=== PATIENT | male | born 1955 | race Caucasian/White ===

== ENCOUNTER 2020-05-31 11:32 | Inpatient (IN) | payer MEDICARE, SELFPAY ==
[2020-05-31] VITALS (9 sets, daily range): BP systolic 114–133; BP diastolic 77–94; PULSE 88–99; RESP 18–24; TEMP 36.4–38.2; O2SAT 91–94; BMI 28.7
--- NOTE | 2020-05-31 11:50 | EKG12_ITS ---
Test Reason : SOB Blood Pressure : / mmHG Vent. Rate : 098 BPM Atrial Rate : 098 BPM P-R Int : 154 ms QRS Dur : 088 ms QT Int : 328 ms P-R-T Axes : 087 -38 150 degrees QTc Int : 418 ms Normal sinus rhythm Left axis deviation ST & T wave abnormality, consider lateral ischemia Abnormal ECG Confirmed by MELINA GASPAR, MARIANA ([id number]), editor magazine DIANA CRISOSTOMO ([id number]) on 06/13/2020 8:42:42 AM Referred By: WILLIAM Confirmed By:LIGIA SUMMERS MD
--- NOTE | 2020-05-31 11:52 | ED.DCSUM_ITS ---
- ER Visit Summary Date of Service: 05/31/20 Chief Complaint: [Shortness of breath] History of Present Illness: The patient is a 65 M [presents to the emergency department complaint of shortness of breath that started 10 days ago. Patient states that multiple family members have been diagnosed with COVID-19. Patient has a [id number]-smh that lives with him and another zjllujrn-[id number] that is a couple of doors down that also was diagnosed with Covid. Patient started with symptoms about 10 days ago and complains of fever, cough, body aches, headaches, and loss of taste and smell. Patient otherwise has no medical history. Patient states that this morning he woke up and his oxygen level was 74%. Patient states that with activity at home his O2 sat drops into the 80s. Patient denies any chest pain.] Physical Examination: [HEENT-PERRLA, EOMI. Cranial nerves II through XII grossly intact. TMs clear. Mucous membranes slightly dry. No adenopathy. Cardiovascular-regular rate and rhythm without murmur or ectopy Lungs-clear to auscultation, chest wall stable without crepitus or subcu emphysema Abdomen-normoactive bowel sounds, soft, nontender, no rebound or rigidity, no peritoneal signs. Extremities-intact ?4, normal range of motion, normal pulses, atraumatic] Test Results: [EKG obtained on arrival shows sinus rhythm with a ventricular rate of 98 bpm with some nonspecific ST changes noted. CBC with differential showed a white count 6.6, hemoglobin 16.7, hematocrit 52, placed 256. Chemistries unremarkable. Troponin less than 0.015. D-dimer was slightly elevated 0.52. Lactate was 2.3. Chest x-ray showed bilateral patchy infiltra stef. CTA of the chest obtained showed multiple small bilateral PEs and bilateral patchy infiltrates. Patient's COVID-19 PCR test pending although I suspect this will be positive.] Emergency Department Course and Treatment: [IV line established. Patient was given Decadron 6 mg IV. Patient placed on nasal cannula O2 as with ambulation his O2 sat did not go above 89%. I discussed case with hospitalist who will admit patient and I was asked to start patient on Lovenox subcu.] Treatment Plan: [Admit] Disposition: [Admit] Impression: [Bilateral pulmonary emboli Bilateral pneumonia-suspect COVID-19 Hypoxemia] This note was generated with [employer] dictation software. It may contain incorrect words, spelling, and punctuation that were not noted in review of the chart prior to signing ED Disposition - Plan for ED Patient: Referrals: Neetu Pham MD [Primary Care Provider] -
[2020-05-31 12:31] LABS: Absolute Lymphocyte Count 0.64 X10^3/uL (0.83-4.51); Absolute Neutrophil Count 5.4 X10^3/uL (2.0-7.7); Basophil# 0.02 X10^3/uL; Basophil% 0.3 % (0-1); Hematocrit 51.8 % (40-54); Hemoglobin 16.7 g/dL (13.0-16.5); Lymphocyte # 0.64 X10^3/ul (4.0); Lymphocyte % 9.7 % (19-41); Mean Corp Hgb Conc 32.2 g/dL (32-36); Mean Corpuscular Hgb 27.2 pg (27.0-32.0); Mean Corpuscular Volume 84.4 fL (80-94); Monocyte# 0.45 X10^3/uL; Monocyte% 6.8 % (0-10); NRBC Flagged by Analyzer 0 % (0-5); Neutrophil # 5.44 X10^3/uL (2.7-7.7); Neutrophil % 82.7 % (47-70); Platelet Count 256 K/mm3 (150-450); RBC Distribution Width CV 13.5 % (11.6-14.6); RBC Distribution Width SD 41.8 fl (35.1-43.9); Red Blood Count 6.14 M/mm3 (4.6-6.2); White Blood Count 6.6 K/mm3 (4.4-11.0)
[2020-05-31 12:47] LABS: Anion Gap 6 (5-15); BUN 16 mg/dL (7-18); BUN/Creat Ratio 13.8 RATIO (10-20); Calcium,Total 8.6 mg/dL (8.5-10.1); Chloride 102 mmol/L (98-107); Creatinine, Serum 1.16 mg/dL (0.70-1.30); EST Glomerular Filtration Rate 68 mL/min (>60); Est Glom Filt Rate - Afr Amer 82 mL/min (>60); Glucose 100 mg/dL (74-106); Potassium 4.1 mmol/L (3.5-5.1); Sodium Level 136 mmol/L (136-145)
--- NOTE | 2020-05-31 12:50 | RAD_ITS ---
STUDY: X-RAY CHEST REASON FOR EXAM: Male, 65 years old. Shortness of breath, cough, no appetite x 10 days, multiple family members with COVID TECHNIQUE: Single AP portable view of the chest. COMPARISON: Comparison is made with prior study dated 06/22/2014. FINDINGS: EKG electrodes are seen. There now is evidence of a patchy bilateral pulmonary infiltrates worse in the left lower lobe follow-up is recommended. There is no demonstrated pleural abnormality. Normal size heart. Normal mediastinum and crystal. Normal visualized pulmonary arteries. There is atherosclerotic tortuosity of the aortic arch and descending thoracic aorta. There are diffuse degenerative changes of the visualized thoracic spine. Status post left shoulder replacement. There is no demonstrated abnormality of the visualized soft tissue structures of the upper abdomen. RAD/Chest 1 View (Portable) IMPRESSION: Bilateral patchy pulmonary infiltrates worse in the left lower lobe. Follow-up is recommended. Electronically Signed: Stanislaw Smith, at 13:04 EST , Service support ,
[2020-05-31 12:53] LABS: D-Dimer Quantitative (DVT/PE) 0.52 FEU/ug/m (0.27-0.49)
--- NOTE | 2020-05-31 12:56 | CT_ITS ---
STUDY: CTA CHEST REASON FOR EXAM: Male, 65 years old. DYSPNEA, COVID EXPOSURE, SICK X 10 DAYS, SOB, COUGH, ASTHMA. 2 scans thru chest, patient moved during scan. RADIATION DOSAGE (If Supplied By Facility): CTDIvol = ( 11.26 ) mGy, DLP = ( 943.77 ) mGycm TECHNIQUE: The examination was performed with the intravenous administration of IV 100mL Isovue-300. Post-processing of the angiographic images was performed, with multiplanar reformation and 3D reconstruction. Individualized dose optimization techniques were used for this CT. COMPARISON: None. FINDINGS: Multiple intraluminal filling defects in the pulmonary arterial branches in both upper lobes. Normal thoracic aorta and visualized great vessels. There is no demonstrated aortic dissection. Normal heart and pericardium. Normal mediastinum. Normal hilar regions. Normal visualized trachea and bronchi. The lungs are well expanded. Diffuse bilateral pulmonary infiltrates in a preferential peripheral distribution involving both lungs. Normal pleura. Normal chest wall structures. Normal osseous structures. Fatty infiltration of the liver. Small hiatal hernia. CT/CTA Chest W/WO Contrast IMPRESSION: Multiple small pulmonary emboli in the upper lobe pulmonary arterial branches. Bilateral patchy infiltrates in the peripheral distribution. Electronically Signed: Stanislaw Smith, at 13:55 EST , Service support ,
[2020-05-31 13:08] LABS: Lactic Acid 2.3 mmol/L (0.4-1.9)
[2020-05-31] MEDS: 0.9% Normal Saline 1,000 ML 150 ML IV (13:09)
[2020-05-31] MEDS: dexAMETHasone 4 MG/ML Vial 6 MG IV (13:09)
--- NOTE | 2020-05-31 14:35 | PCM.HP.STD ---
Problem List (1) Pulmonary embolism Status: Acute Qualifiers: Chronicity: acute Acute cor pulmonale presence: unspecified (2) Hypoxia Status: Acute (3) Pneumonia due to COVID-19 virus Status: Acute (4) Lactic acidosis Status: Acute History of Present Illness Date of Admission: 05/31/20 Chief Complaint: SOB - 10 days The patient is a 65 year old M with no significant past medical history who comes in with complaints of progressive shortness of breath has gotten worse over the last 10 days. Patient stated that he got infected with COVID-19 and started having symptoms 2 days after Thanksgiving. There was a family gathering, and aunt, cshrbseu-ov-xth and son are all positive for infection. Patient admits to fevers, cough, body aches, loss of smell and taste as well as headaches. He denied any chest discomfort. Yesterday, he was noted at his oxygen saturation was dropping to the low 90s. Today his oxygen level was 74%. Vitals in the ED showed temp of 100.8F, heart rate 94, blood pressure 127/89, respiratory 18, SPO2 was 92% on 2 L of oxygen. WBC count is 6.6, hemoglobin 16.7, platelet count 256, D-dimer 0.52, BMP unremarkable except for lactic acid of 2.3, COVID-19 PCR is positive Chest x-ray showed bilateral patchy pulmonary infiltrates, worse in the left lower lobe. CTA of the chest shows multiple small pulmonary emboli in the upper lobe, bilateral patchy infiltrates in the peripheral distribution. Blood cultures are pending Past Medical History Allergies No Known Allergies Allergy (Verified 05/31/20 11:33) Home Medications: Ambulatory Orders Medication Instructions Recorded Acetaminophen [Tylenol Extra 1,000 mg PO DAILY PRN PRN 05/31/20 Strength] Ascorbic Acid 500 mg PO DAILY 05/31/20 Ascorbic Acid/Elderberry Fruit 1 ea PO DAILY 05/31/20 [Elderberry-Vit C 50-100 mg Chw] Cholecalciferol (Vitamin D3) 5,000 unit PO DAILY 05/31/20 [Vitamin D3] Ibuprofen [Motrin] 600 mg PO BID PRN PRN 05/31/20 Surgical History: - - Status post bilateral knee surgery, shoulder surgery Psychiatric History: No pertinent psych hx Lives: Spouse/ Significant Other, With Family Smoking Status: Former smoker Tobacco Use: Non-smoker Alcohol: Occasional Drugs: None - *Family History Maternal History Items: Heart Disease Paternal History Items: Hypertension Review of Systems Constitutional: Reports: Malaise, Weakness, Fatigue. Denies: Anorexia, Chills, Fever, Weight Change Eyes: Denies: Blurred vision, Cataracts, Conjunctivae Inflammation HEENT: Denies: Difficulty Hearing, Difficulty Swallowing, Head Aches, Hearing Changes, Sinus Congestion, Sinus Drainage Cardiovascular: Denies: Chest Pain, Light Headedness, Orthopnea, Palpitations, Syncope Respiratory: Reports: Cough, Shortness of Breath, Shortness of breath at rest, Shortness of breath upon exertion. Denies: Hemoptysis, Sputum production Gastrointestinal: Denies: Abdominal Pain, Hematemesis, Hematochezia, Nausea, Vomiting Genitourinary: Denies: Dysuria, Frequency Musculoskeletal: Denies: Joint Pain, Joint stiffness, Joint swelling, Joint Tenderness Skin: Denies: Rash, Wounds Neurological: Denies: Difficulty swallowing, Focal weakness, Numbness, Tingling Psychiatric: Denies: Anxiety, Depression, Homicidal Ideations, Suicidal Ideations Hematologic/ Lymphatic: Denies: Easy Bruising, Easy Bleeding VTE Information - Inpt Only VTE Present on Admission: Yes VTE Pharm Prophylaxis ordered?: Yes Patient Problems: Active and Suspected Problems Pulmonary embolism (Acute) Hypoxia (Acute) Pneumonia due to COVID-19 virus (Acute) Lactic acidosis (Acute) - Physical Exam Vitals/I&O's: Vital Signs Temp Pulse Resp BP Pulse Ox 99.9 F H 97 22 H 125/94 H 91 05/31/20 11:33 05/31/20 14:23 05/31/20 14:23 05/31/20 14:23 05/31/20 14:23 Oxygen Delivery Method Room Air Weight: 104.326 kg Body Mass Index (BMI) 28.7 General: Alert, Oriented x3, Cooperative, No apparent distress, - - on 2L oxygen, no conversational dyspnea HEENT: Atraumatic, PERRLA, EOMI, Normocephalic Oral: Moist Mucosa Neck: Supple Lungs: Diminished Cardiovascular: Regular rate, Regular Rhythm, Normal S1, Normal S2, No murmurs Abdomen: Bowel Sounds Present, Soft, Non Tender, Non-Distended, No Hepato-splenomegaly Extremities: No edema Skin: No rashes Musculoskeletal: No Tenderness to Palpation of Joints or Extremities Lymphatic: No Cervical, Supraclavicular, or Inguinal Adenopathy Neurological: Cranial nerves II-XII grossly intact, Neuro grossly intact Psych/Mental Status: Normal Affect, Appropriate Laboratory Results 05/31/20 11:55: COVID-19 (JAMEEL) Pending 05/31/20 12:18: WBC 6.6, RBC 6.14, Hgb 16.7 H, Hct 51.8, MCV 84.4, MCH 27.2, MCHC 32.2, RDW Std Deviation 41.8, RDW Coeff of Rj 13.5, Plt Count 256, MPV 10.0, Immature Gran % (Auto) 0.500, Neut % (Auto) 82.7 H, Lymph % (Auto) 9.7 L, Stephenson % (Auto) 6.8, Eos % (Auto) 0.0, Baso % (Auto) 0.3, Absolute Neuts (auto) 5.4, Absolute Lymphs (auto) 0.64 L, Nucleated RBC % 0 05/31/20 12:18: D-Dimer Quant (PE/DVT) 0.52 H* 05/31/20 12:18: Sodium 136, Potassium 4.1, Chloride 102, Carbon Dioxide 28.0, Anion Gap 6, BUN 16, Creatinine 1.16, Estim Creat Clear Calc 77.90, Est GFR (MDRD) Af Amer 82, Est GFR (MDRD) Non-Af 68, BUN/Creatinine Ratio 13.8, Glucose 100, Calcium 8.6, Troponin I < 0.015 05/31/20 12:18: Lactic Acid 2.3 H* Current Medications Sodium Chloride () 1,000 mls @ 150 mls/hr IV .[id number] ONE Stop: 05/31/20 18:28 Last Admin: 05/31/20 13:09 Dose: 150 mls/hr Documented by: Assessment/Plan All Active Problems Pulmonary embolism (Acute) Hypoxia (Acute) Pneumonia due to COVID-19 virus (Acute) Lactic acidosis (Acute) 1. Acute hypoxic respiratory insufficiency secondary to acute COVID-19 pneumonia Continue with breathing treatments,po steroids, encourage use of incentive spirometer. Wean off oxygen for SPO2 more than 94% 2. Acute COVID-19 pneumonia with hypoxia Started on IV dexamethasone, continue on oral dexamethasone and remdesivir ID consult 3. Acute bilateral PE secondary to #2 CTA of the chest shows multiple small pulmonary emboli in the upper lobe 4. Elevated lactic acid secondary to #1 We will repeat lactic acid in a.m. as patient appears stable and no signs of sepsis Laboratory technicians are unable to draw lactic acid levels this evening We will hydrate patient and repeat in a.m. 5. DVT prophylaxis?on therapeutic Lovenox 6. CODE STATUS: Full code I discussed and explained in details the various types of CODE STATUS-full code, DNR CCA, DNR CC. Patient wants to be full code. Time spent discussing CODE STATUS 16 minutes Inpatient E&M: 93064 Init Hosp L3 Procedures: 13416 Advncd Care Plan 30 Min
--- NOTE | 2020-05-31 14:42 | NURSING ---
MS2 COVID PAINTSIL COVID 19, PNEUMONIA, HYPOXIA, PE
[2020-05-31] MEDS: Enoxaparin 100 MG/ML Syringe SC ×2 (15:26→21:36)
[2020-05-31 16:25] LABS: Reflex Lactate? Y
[2020-05-31 17:11] LABS: AST(SGOT) 61 U/L (15-37); Alanine Aminotransfer ALT/SGPT 64 U/L (16-61); Albumin, Serum 3.7 g/dL (3.2-5.0); Alkaline Phosphatase 91 U/L (45-117); Bilirubin, Direct 0.17 mg/dL (0.00-0.30); Globulin 4.1 g/dL (2.2-4.2); Protein, Total 7.8 g/dL (6.4-8.2)
--- NOTE | 2020-05-31 17:24 | PCS.PANDOC ---
PANDEMIC DOCUMENTATION INITIATED: Date: 05/31/2020 Time: 3426
[2020-06-01] VITALS (12 sets, daily range): BP systolic 116–125; BP diastolic 81–90; PULSE 76–90; RESP 18–24; TEMP 34.8–36.5; O2SAT 87–94
[2020-06-01 07:50] LABS: Absolute Lymphocyte Count 1.07 X10^3/uL (0.83-4.51); Absolute Neutrophil Count 3.6 X10^3/uL (2.0-7.7); Basophil# 0.01 X10^3/uL; Basophil% 0.2 % (0-1); Hematocrit 51.1 % (40-54); Hemoglobin 16.4 g/dL (13.0-16.5); Lymphocyte # 1.07 X10^3/ul (4.0); Lymphocyte % 21.4 % (19-41); Mean Corp Hgb Conc 32.1 g/dL (32-36); Mean Corpuscular Hgb 26.6 pg (27.0-32.0); Mean Platelet Vol. 10.2 fl (6.2-12.0); Monocyte# 0.33 X10^3/uL; Monocyte% 6.6 % (0-10); NRBC Flagged by Analyzer 0 % (0-5); Neutrophil # 3.58 X10^3/uL (2.7-7.7); Neutrophil % 71.6 % (47-70); Platelet Count 273 K/mm3 (150-450); RBC Distribution Width CV 13.4 % (11.6-14.6); RBC Distribution Width SD 41.2 fl (35.1-43.9); Red Blood Count 6.16 M/mm3 (4.6-6.2)
[2020-06-01 08:03] LABS: Lactic Acid 1.7 mmol/L (0.4-1.9)
[2020-06-01 08:27] LABS: ALB/GLOB Ratio 0.9 RATIO (0.9-2.4); AST(SGOT) 46 U/L (15-37); Alanine Aminotransfer ALT/SGPT 57 U/L (16-61); Albumin, Serum 3.4 g/dL (3.2-5.0); Alkaline Phosphatase 83 U/L (45-117); Anion Gap 8 (5-15); BUN 18 mg/dL (7-18); BUN/Creat Ratio 20.2 RATIO (10-20); Calcium,Total 8.7 mg/dL (8.5-10.1); Chloride 106 mmol/L (98-107); Creatinine, Serum 0.89 mg/dL (0.70-1.30); EST Glomerular Filtration Rate 92 mL/min (>60); Est Glom Filt Rate - Afr Amer 111 mL/min (>60); Estimated Creatinine Clearance 101.54 ml/min; Globulin 3.7 g/dL (2.2-4.2); Glucose 134 mg/dL (74-106); Potassium 4.5 mmol/L (3.5-5.1); Protein, Total 7.1 g/dL (6.4-8.2); Sodium Level 138 mmol/L (136-145)
[2020-06-01] MEDS: Enoxaparin 100 MG/ML Syringe SC (08:45)
[2020-06-01] MEDS: dexAMETHasone 4 MG Tablet 6 MG PO (08:45)
--- NOTE | 2020-06-01 08:49 | NURSING ---
pt states i am going to try and move as much as i can to keep my strength up. oxygen left at 4l NC
[2020-06-01] MEDS: 0.9% Saline Lock 10 ML Syringe IV ×2 (10:31→21:05)
--- NOTE | 2020-06-01 14:27 | PN_ITS ---
Patient Problems: Active and Suspected Problems Pulmonary embolism (Acute) Hypoxia (Acute) Pneumonia due to COVID-19 virus (Acute) Lactic acidosis (Acute) Reason for Visit: PE and COVID 19 Subjective: Feels better after his oxygen increased up to 4 liters from 2. Has been ill for about 10 days prior to arrival. Vitals/I&O's: Vital Signs Temp Pulse Resp BP Pulse Ox 34.8 C L 82 24 H 125/90 H 90 06/01/20 08:01 06/01/20 11:52 06/01/20 08:01 06/01/20 08:01 06/01/20 14:25 Oxygen Flow Rate (L/min) [ 4 AMBULATION with Oxygen] Oxygen Flow Rate (L/min) 4 Oxygen Delivery Method Nasal Cannula Weight: 104.326 kg Body Mass Index (BMI) 28.7 Intake and Output for Last 24 Hours 05/30/20 05/31/20 06/01/20 23:59 23:59 23:59 Intake Total 1250 / 1250 Balance 1250 / 1250 General: Alert, No apparent distress HEENT: Atraumatic, Normocephalic Oral: Moist Mucosa, No Gingival or Mucosal Lesions/ Ulcerations Neck: No Nodes, Thyroid Normal Size and Texture Lungs: Normal air movement, - - bibasilar crackles. Cardiovascular: Regular rate Abdomen: Bowel Sounds Present, Soft, Non Tender, Non-Distended, No Hepato- splenomegaly Extremities: No edema, No Calf Tenderness Psych/Mental Status: Normal Affect, Appropriate Laboratory Results 05/31/20 11:55: COVID-19 (JAMEEL) Detected 05/31/20 12:18: Total Bilirubin 0.50, Direct Bilirubin 0.17, AST 61 H, ALT 64 H, Alkaline Phosphatase 91, Total Protein 7.8, Albumin 3.7, Globulin 4.1 06/01/20 07:22: WBC 5.0, RBC 6.16, Hgb 16.4, Hct 51.1, MCV 83.0, MCH 26.6 L, MCHC 32.1, RDW Std Deviation 41.2, RDW Coeff of Rj 13.4, Plt Count 273, MPV 10.2, Immature Gran % (Auto) 0.200, Neut % (Auto) 71.6 H, Lymph % (Auto) 21.4, Da[place]hin % (Auto) 6.6, Eos % (Auto) 0.0, Baso % (Auto) 0.2, Absolute Neuts (auto) 3.6, Absolute Lymphs (auto) 1.07, Nucleated RBC % 0 06/01/20 07:22: Sodium 138, Potassium 4.5, Chloride 106, Carbon Dioxide 24.0, Anion Gap 8, BUN 18, Creatinine 0.89, Estim Creat Clear Calc 101.54, Est GFR (MDRD) Af Amer 111, Est GFR (MDRD) Non-Af 92, BUN/Creatinine Ratio 20.2 H, Glucose 134 H, Calcium 8.7, Total Bilirubin 0.40, AST 46 H, ALT 57, Alkaline Phosphatase 83, Total Protein 7.1, Albumin 3.4, Globulin 3.7, Albumin/Globulin Ratio 0.9 06/01/20 07:22: Lactic Acid 1.7 Current Medications Acetaminophen (Acetaminophen 325 Mg Tablet) 650 mg PO Q6H PRN PRN PRN Reason: Pain Score 1-10/Temp > 100.7 F Al Hydroxide/Mg Hydroxide (Mag Hydrox/Al Hydrox/Simeth 30 Ml Udc) 30 ml PO Q6H PRN PRN PRN Reason: Gastric Burning Albuterol Sulfate (Albuterol 2.5 Mg/3 Ml Vial.Neb.) 2.5 mg INHALATION Q2H PRN PRN PRN Reason: Shortness of Breath/Wheezing Dexamethasone (Dexamethasone 4 Mg Tablet) 6 mg PO DAILY [facility] Stop: 06/09/20 10:01 Last Admin: 06/01/20 08:45 Dose: 6 mg Documented by: Enoxaparin Sodium (Enoxaparin 100 Mg/Ml Syringe) 100 mg SC Q12 [facility] Last Admin: 06/01/20 08:45 Dose: 100 mg Documented by: Remdesivir 100 mg/ Sodium (Chloride) 250 mls @ 125 mls/hr IV DAILY [facility] Stop: 06/04/20 11:59 Last Admin: 06/01/20 10:29 Dose: 125 mls/hr Documented by: Sodium Chloride () 250 mls @ 15 mls/hr IV .[id number] PRN PRN Reason: Saline Flush Sodium Chloride () 250 mls @ 15 mls/hr IV .[id number] PRN PRN Reason: Additional IVPB Infusion Nitroglycerin (Nitroglycerin (Inpatient Use) 0.4 Mg Tab.Subl) 0.4 mg SUBLINGUAL Q5M PRN PRN Reason: CARDIAC/CHEST PAIN Ondansetron HCl (Ondansetron 4 Mg/2 Ml Vial) 4 mg IV Q8H PRN PRN PRN Reason: NAUSEA/VOMITING Sodium Chloride (0.9% Saline Lock 10 Ml Syringe) 10 - 40 ml IV UD PRN PRN Reason: SALINE FLUSH Last Admin: 06/01/20 10:31 Dose: 10 ml Documented by: STROKE Vital Signs/Narrative: Vital Signs Pulse Pulse Ox 06/01/20 14:25 90 06/01/20 11:52 82 Medical Necessity - Tobacco Use Smoking Status: Never smoker Tobacco Use: Non-smoker Assessment/Plan All Active Problems Pulmonary embolism (Acute) Hypoxia (Acute) Pneumonia due to COVID-19 virus (Acute) Lactic acidosis (Acute) 1. Acute hypoxic respiratory failure * 2/2 COVID 19 pnuemonia and PE * currently stable * treat the underlying illness * check ambulatory pulse ox prior to discharge 2. Acute COVID 19 pneumonia * on dex and rem 3. PE * may be due to hypercoagulable state of COVID 19 or due to venous stasis from relative immobility from being ill. * D-dimer only 0.52, which is normal for his age. * change to apixaban. Will need treated for 6 months 4. lactic acidosis * resolved * 2/2 hypoxia 5. VTE prophylaxis: anticoagulated. Inpatient E&M: 31382 Subs Hosp L2
--- NOTE | 2020-06-01 16:21 | CON.PCM_ITS ---
Problem List (1) Pneumonia due to COVID-19 virus Status: Acute Reason for Consult: covid Consulted by: Dr. Adkins History of Present Illness: The patient is a 65 year old M presented with sx starting 05/20 after Thanksgiving dinner with his two sons, their families, and his elderly aunt. Multiple symptomatic (+) covid cases from that group now. He reports aches, fever, chills, cough, SOB, n/v/d, change in taste/smell, fatigue. Came to ED, CT showed PE, admitted on dex, remdesivir, high dose lovenox. Feeling better today. Full ROS performed and neg except as noted above. - Medical History Surgical History: reviewed Allergies/Adverse Reactions: Allergies No Known Allergies Allergy (Verified 05/31/20 11:33) Home Medications: Ambulatory Orders Medication Instructions Recorded Acetaminophen [Tylenol Extra 1,000 mg PO DAILY PRN PRN 05/31/20 Strength] Ascorbic Acid 500 mg PO DAILY 05/31/20 Ascorbic Acid/Elderberry Fruit 1 ea PO DAILY 05/31/20 [Elderberry-Vit C 50-100 mg Chw] Cholecalciferol (Vitamin D3) 5,000 unit PO DAILY 05/31/20 [Vitamin D3] Ibuprofen [Motrin] 600 mg PO BID PRN PRN 05/31/20 - Social History SMOKING STATUS:: Never smoker Vital Signs Temp Pulse Resp BP Pulse Ox 97.7 F L 85 20 H 122/89 H 94 06/01/20 14:59 06/01/20 14:59 06/01/20 14:59 06/01/20 14:59 06/01/20 14:59 Oxygen Flow Rate (L/min) [ 4 AMBULATION with Oxygen] Oxygen Flow Rate (L/min) 4 Oxygen Delivery Method Nasal Cannula Weight: 104.326 kg Body Mass Index (BMI) 28.7 Laboratory Tests Past 24 Hrs 05/31/20 06/01/20 06/01/20 12:18 07:22 07:22 WBC 5.0 RBC 6.16 Hgb 16.4 Hct 51.1 MCV 83.0 MCH 26.6 L MCHC 32.1 RDW Std Deviation 41.2 RDW Coeff of Rj 13.4 Plt Count 273 MPV 10.2 Immature Gran % (Auto) 0.200 Neut % (Auto) 71.6 H Lymph % (Auto) 21.4 Ingham % (Auto) 6.6 Eos % (Auto) 0.0 Baso % (Auto) 0.2 Absolute Neuts (auto) 3.6 Absolute Lymphs (auto) 1.07 Nucleated RBC % 0 Sodium 138 Potassium 4.5 Chloride 106 Carbon Dioxide 24.0 Anion Gap 8 BUN 18 Creatinine 0.89 Estim Creat Clear Calc 101.54 Est GFR (MDRD) Af Amer 111 Est GFR (MDRD) Non-Af 92 BUN/Creatinine Ratio 20.2 H Glucose 134 H Lactic Acid Calcium 8.7 Total Bilirubin 0.50 0.40 Direct Bilirubin 0.17 AST 61 H 46 H ALT 64 H 57 Alkaline Phosphatase 91 83 Total Protein 7.8 7.1 Albumin 3.7 3.4 Globulin 4.1 3.7 Albumin/Globulin Ratio 0.9 06/01/20 07:22 WBC RBC Hgb Hct MCV MCH MCHC RDW Std Deviation RDW Coeff of Rj Plt Count MPV Immature Gran % (Auto) Neut % (Auto) Lymph % (Auto) Ingham % (Auto) Eos % (Auto) Baso % (Auto) Absolute Neuts (auto) Absolute Lymphs (auto) Nucleated RBC % Sodium Potassium Chloride Carbon Dioxide Anion Gap BUN Creatinine Estim Creat Clear Calc Est GFR (MDRD) Af Amer Est GFR (MDRD) Non-Af BUN/Creatinine Ratio Glucose Lactic Acid 1.7 Calcium Total Bilirubin Direct Bilirubin AST ALT Alkaline Phosphatase Total Protein Albumin Globulin Albumin/Globulin Ratio - Other Studies Radiology: [] reviewed Other Studies: [] Route of nutrition/ use of supplements: [] Nutritional Intake: [] IV Site: [] [place] Catheter: [] - Physical Exam General: Alert, Oriented x3, Cooperative, No apparent distress HEENT: Atraumatic, PERRLA, EOMI Neck: Supple, No Nodes Lungs: Diminished Cardiovascular: Regular rate, Regular Rhythm Abdomen: Soft, Non Tender, Non-Distended Extremities: No edema Skin: No rashes IV Site: Peripheral, without redness Musculoskeletal: No Tenderness to Palpation of Joints or Extremities Neurological: Cranial nerves II-XII grossly intact - Assessment/Plan Antibiotics: [] Assessment/Plan: [] Active and Suspected Problems Pulmonary embolism (Acute) Hypoxia (Acute) Pneumonia due to COVID-19 virus (Acute) Lactic acidosis (Acute) Covid with hypoxia and PE - sx started 05/20. D-dimer mild elevation. On dex, lovenox 100mg bid, and remdesivir. Will order monitoring labs and give stop date for dex. Will follow, thank you
--- NOTE | 2020-06-01 17:04 | NURSING ---
RN CM Assessment Patient on COVID isolation, called bedside and s/w patient. Introduced role of RN CM to patient.? Patient is alert, oriented and able?to participate in RN CM Assessment. ?Care providers, pharmacy, and demographics verified. Admit Dx: COVID, Acute PE Re-Admit: No Barriers/Issues: None. States that his , son, Dtr in law all had COVID whom live with patient- stay in mother in law suite with his 3yo grand dtr. Dtr in law is a RN. Patient would like to go home tomorrow. PCP: Elsie Pham Specialists: ENT, Ophth Preferred Pharmacy: [facility] Insurance: [employer] Rx Benefit:?Yes ?LNOK: Bobby Guadalupe LW/HPOA: States has both, not on file at [facility]. HPOA- son Vipul Guadalupe Living Arrangements:? Lives with in a H, 1 step to enter. Son, dtr in law and 3yo granddtr live in mother in law suite. ADL?s: Independent with ambulation and ADLs Transportation: Both patient and drive. Upon DC- or son. DME: [employer] HHC: Past SNF: None Goal: Home and does not think will have any other needs other than possible oxygen. Denies any concerns or issues with DC planing at this time. Aware RNCM will continue to follow. DC PLAN: Home with possible oxygen and f/u if dc'd on Eliquis for coupon card. CHRIS Alexandre
[2020-06-01] MEDS: APIXABAN 5 MG TABLET 10 MG PO (21:06)
[2020-06-02] VITALS (8 sets, daily range): BP systolic 111–122; BP diastolic 78–84; PULSE 71–87; RESP 18–20; TEMP 36.4–36.7; O2SAT 87–94
[2020-06-02 06:49] LABS: Hemoglobin 14.6 g/dL (13.0-16.5); Mean Corp Hgb Conc 31.7 g/dL (32-36); Mean Corpuscular Hgb 27.7 pg (27.0-32.0); Mean Corpuscular Volume 87.1 fL (80-94); Mean Platelet Vol. 10.2 fl (6.2-12.0); Platelet Count 261 K/mm3 (150-450); RBC Distribution Width SD 44.7 fl (35.1-43.9); Red Blood Count 5.28 M/mm3 (4.6-6.2); White Blood Count 8.7 K/mm3 (4.4-11.0)
[2020-06-02 07:26] LABS: ALB/GLOB Ratio 0.5 RATIO (0.9-2.4); AST(SGOT) 48 U/L (15-37); Alanine Aminotransfer ALT/SGPT 55 U/L (16-61); Albumin, Serum 2.5 g/dL (3.2-5.0); Alkaline Phosphatase 73 U/L (45-117); Anion Gap 5 (5-15); BUN 21 mg/dL (7-18); BUN/Creat Ratio 28.5 RATIO (10-20); Calcium,Total 8.2 mg/dL (8.5-10.1); Chloride 110 mmol/L (98-107); Creatinine, Serum 0.74 mg/dL (0.70-1.30); EST Glomerular Filtration Rate 114 mL/min (>60); Est Glom Filt Rate - Afr Amer 138 mL/min (>60); Estimated Creatinine Clearance 122.12 ml/min; Globulin 4.6 g/dL (2.2-4.2); Glucose 115 mg/dL (74-106); Potassium 4.1 mmol/L (3.5-5.1); Protein, Total 7.1 g/dL (6.4-8.2); Sodium Level 134 mmol/L (136-145)
--- NOTE | 2020-06-02 08:56 | NURSING ---
SPO2 RANGES 90-92% ON 4L NASAL CANNULA, SPO2 DROPS TO 89% WHEN IN CONVERSATION WITH NURSE. PT REQUESTING TO HAVE NASAL CANNULA LOWERED- DISCUSSED/REINFORCED SUPPLY/DEMAND OXYGEN/DISEASE PROCESS. PT AGREES TO KEEP OXYGEN NASAL CANNULA AT PRESENT LEVEL.
[2020-06-02] MEDS: APIXABAN 5 MG TABLET 10 MG PO (09:00)
[2020-06-02] MEDS: dexAMETHasone 4 MG Tablet 6 MG PO (09:00)
[2020-06-02] MEDS: 0.9% Saline Lock 10 ML Syringe IV (10:51)
--- NOTE | 2020-06-02 10:56 | CASEMGMT ---
RN CM Note: Possible dc today if oxygen is stable. Per nursing note, oxygen dropping during conversation. Recommend home oxygen testing be repeated including activity for ambulatory levels and recovery. Heriberto ONEILN RN ACM
--- NOTE | 2020-06-02 11:05 | PCM.PN.ID ---
Patient Problems: Active and Suspected Problems Pulmonary embolism (Acute) Hypoxia (Acute) Pneumonia due to COVID-19 virus (Acute) Lactic acidosis (Acute) Subjective: Feeling much better, wants to go home, no fever - Physical Exam Vitals/I&O's: Vital Signs Temp Pulse Resp BP Pulse Ox 98.1 F 87 20 H 116/79 91 06/02/20 10:48 06/02/20 10:48 06/02/20 10:48 06/02/20 10:48 06/02/20 11:01 Oxygen Flow Rate (L/min) [ 4 AMBULATION with Oxygen] Oxygen Flow Rate (L/min) 4 Oxygen Delivery Method Nasal Cannula Weight: 104.326 kg Body Mass Index (BMI) 28.7 Intake and Output for Last 24 Hours 05/31/20 06/01/20 06/02/20 23:59 23:59 23:59 Intake Total 1250 / 1250 250 / 250 0 / 0 Balance 1250 / 1250 250 / 250 0 / 0 General: Alert, Cooperative, No apparent distress Lungs: Clear to auscultation, Diminished Cardiovascular: Regular rate, Regular Rhythm Abdomen: Soft, Non Tender, Non-Distended Skin: No rashes Laboratory Results 06/02/20 06:32: WBC 8.7, RBC 5.28, Hgb 14.6, Hct 46.0, MCV 87.1, MCH 27.7, MCHC 31.7 L, RDW Std Deviation 44.7 H, RDW Coeff of Rj 14.0, Plt Count 261, MPV 10.2 06/02/20 06:32: Sodium 134 L, Potassium 4.1, Chloride 110 H, Carbon Dioxide 19.0 L, Anion Gap 5, BUN 21 H, Creatinine 0.74, Estim Creat Clear Calc 122.12, Est GFR (MDRD) Af Amer 138, Est GFR (MDRD) Non-Af 114, BUN/Creatinine Ratio 28.5 H, Glucose 115 H, Calcium 8.2 L, Total Bilirubin 0.30, AST 48 H, ALT 55, Alkaline Phosphatase 73, Total Protein 7.1, Albumin 2.5 L, Globulin 4.6 H, Albumin/Globulin Ratio 0.5 L Current Medications Acetaminophen (Acetaminophen 325 Mg Tablet) 650 mg PO Q6H PRN PRN PRN Reason: Pain Score 1-10/Temp > 100.7 F Al Hydroxide/Mg Hydroxide (Mag Hydrox/Al Hydrox/Simeth 30 Ml Udc) 30 ml PO Q6H PRN PRN PRN Reason: Gastric Burning Albuterol Sulfate (Albuterol 2.5 Mg/3 Ml Vial.Neb.) 2.5 mg INHALATION Q2H PRN PRN PRN Reason: Shortness of Breath/Wheezing Apixaban (Apixaban 5 Mg Tablet) 10 mg PO BID [facility] Last Admin: 06/02/20 09:00 Dose: 10 mg Documented by: Dexamethasone (Dexamethasone 4 Mg Tablet) 6 mg PO DAILY [facility] Stop: 06/09/20 10:01 Last Admin: 06/02/20 09:00 Dose: 6 mg Documented by: Remdesivir 100 mg/ Sodium (Chloride) 250 mls @ 125 mls/hr IV DAILY [facility] Stop: 06/04/20 11:59 Last Admin: 06/02/20 10:50 Dose: 125 mls/hr Documented by: Sodium Chloride () 250 mls @ 15 mls/hr IV .[id number] PRN PRN Reason: Saline Flush Last Infusion: 06/02/20 10:51 Dose: 0 mls/hr Documented by: Sodium Chloride () 250 mls @ 15 mls/hr IV .[id number] PRN PRN Reason: Additional IVPB Infusion Nitroglycerin (Nitroglycerin (Inpatient Use) 0.4 Mg Tab.Subl) 0.4 mg SUBLINGUAL Q5M PRN PRN Reason: CARDIAC/CHEST PAIN Ondansetron HCl (Ondansetron 4 Mg/2 Ml Vial) 4 mg IV Q8H PRN PRN PRN Reason: NAUSEA/VOMITING Sodium Chloride (0.9% Saline Lock 10 Ml Syringe) 10 - 40 ml IV UD PRN PRN Reason: SALINE FLUSH Last Admin: 06/02/20 10:51 Dose: 10 ml Documented by: Medical Necessity - Tobacco Use Smoking Status: Never smoker Tobacco Use: Non-smoker Route of nutrition/ use of supplements: [] Nutritional Intake: [] IV Site: [] [place] Catheter: [] - Assessment/Plan Antibiotics: [] Assessment/Plan: [] Active and Suspected Problems Pulmonary embolism (Acute) Hypoxia (Acute) Pneumonia due to COVID-19 virus (Acute) Lactic acidosis (Acute) Covid with hypoxia and PE - sx started 05/20. D-dimer mild elevation. On dex, lovenox 100mg bid, and remdesivir. Much improved, ok for d/c home today or tomorrow on O2 as needed to complete 10 days total of dex and course of anticoag for PE. Will follow
--- NOTE | 2020-06-02 11:44 | CASEMGMT ---
RN Note: Discussed oxygen choices with pt for his insurance ([employer], [employer]). Pt prefers [employer]. Script and clinical faxed to them and called to notify of referral. Heriberto CULP RN ACM
--- NOTE | 2020-06-02 12:55 | DCINST_ITS ---
- Discharge Diagnoses Current Active Problems: Current Active and Chronic Problems Pulmonary embolism (Acute) Hypoxia (Acute) Pneumonia due to COVID-19 virus (Acute) Lactic acidosis (Acute) You will use the following diet at home:: No restrictions Your food should be the consistency of: Regular Your liquids should be the consistency of: Regular/Thin Discharge Activity: Return to Normal Activity Call your doctor if you observe: Fever of 101 or Higher, Shortness of breath Allergies/Adverse Reactions: Allergies No Known Allergies Allergy (Verified 05/31/20 11:33) Medications to take at Discharge Acetaminophen [Tylenol Extra Strength] 1,000 mg PO DAILY PRN PRN 05/31/20 Ascorbic Acid 500 mg PO DAILY 05/31/20 Ascorbic Acid/Elderberry Fruit [Elderberry-Vit C 50-100 mg Chw] 1 ea PO DAILY 05/31/20 Cholecalciferol (Vitamin D3) [Vitamin D3] 5,000 unit PO DAILY 05/31/20 Apixaban [Eliquis] 5 mg PO BID #60 tab 06/02/20 Dexamethasone [Decadron] 6 mg PO DAILY #7 tab 06/02/20 The following prescriptions were given: Dexamethasone [Decadron] 6 mg PO DAILY #7 tab Transmission Status: Pending to [facility]/pharmacy #[id number] Apixaban [Eliquis] 5 mg PO BID #60 tab Transmission Status: Pending to [facility]/pharmacy #[id number] Primary Care Physician: Neetu Pham MD [Primary Care Provider] - Within 2 Weeks Test Results: Test results from this visit will be discussed in further detail at your follow- up appointment, if applicable. Proposed Discharge Date: 06/02/20
--- NOTE | 2020-06-02 12:56 | PCM.DC.SUM ---
Discharge Date and Diagnosis - Problem List Patient Problems: Active and Suspected Problems Pulmonary embolism (Acute) Hypoxia (Acute) Pneumonia due to COVID-19 virus (Acute) Lactic acidosis (Acute) Date of Admission: 05/31/20 Date of Discharge: 06/02/20 - Primary Discharge Diagnosis Acute Problems: Active Problems Pulmonary embolism (Acute) Hypoxia (Acute) Pneumonia due to COVID-19 virus (Acute) Lactic acidosis (Acute) Hospital Course and Treatment Imaging Results: Clinical Impression(s) from Imaging Studies Chest X-Ray 05/31/20 12:50 IMPRESSION: Bilateral patchy pulmonary infiltrates worse in the left lower lobe. Follow-up is recommended. Electronically Signed: Stanislaw Smith, at 13:04 EST , Service support , Chest CTA 05/31/20 12:56 IMPRESSION: Multiple small pulmonary emboli in the upper lobe pulmonary arterial branches. Bilateral patchy infiltrates in the peripheral distribution. Electronically Signed: Stanislaw Smith, at 13:55 EST , Service support , LUIS Mayes Operations: None Procedures: None Summary of Care Provided: The patient is a 65 year old M presents with 10 days of shortness of breath. Patient was Covid positive. Patient had a CTA that showed patchy infiltrates consistent with Covid pneumonia as well as multiple small pulmonary emboli. Patient to start dexamethasone, remdesivir and apixaban. Patient has done well during his hospitalization, however he does require oxygen with activity and rest as his pulse ox dropped down to 88% on room air. [] Patient Problems: Active and Suspected Problems Pulmonary embolism (Acute) Hypoxia (Acute) Pneumonia due to COVID-19 virus (Acute) Lactic acidosis (Acute) - Physical Exam Vitals/I&O's: Vital Signs Temp Pulse Resp BP Pulse Ox 36.7 C 87 20 H 116/79 91 06/02/20 10:48 06/02/20 10:48 06/02/20 10:48 06/02/20 10:48 06/02/20 11:01 Oxygen Flow Rate (L/min) [ 4 AMBULATION with Oxygen] Oxygen Flow Rate (L/min) 4 Oxygen Delivery Method Nasal Cannula Weight: 104.326 kg Body Mass Index (BMI) 28.7 Intake and Output for Last 24 Hours 05/31/20 06/01/20 06/02/20 23:59 23:59 23:59 Intake Total 1250 / 1250 250 / 250 0 / 0 Balance 1250 / 1250 250 / 250 0 / 0 General: Alert, No apparent distress HEENT: Atraumatic, Normocephalic Oral: Moist Mucosa, No Gingival or Mucosal Lesions/ Ulcerations Neck: No Nodes, Thyroid Normal Size and Texture Lungs: Clear to auscultation, Normal air movement, No rhonchi, No wheeze Cardiovascular: Regular rate, Regular Rhythm, Normal S1, Normal S2 Microbiology Past 72 Hours 05/31/20 12:10 Blood Culture (Wb) #2 - Left Hand Blood Culture - Preliminary No growth in 48 hours. 05/31/20 12:18 Blood Culture (Wb) - Anticubital Right Blood Culture - Preliminary No growth in 48 hours. Laboratory Results 06/02/20 06:32: WBC 8.7, RBC 5.28, Hgb 14.6, Hct 46.0, MCV 87.1, MCH 27.7, MCHC 31.7 L, RDW Std Deviation 44.7 H, RDW Coeff of Rj 14.0, Plt Count 261, MPV 10.2 06/02/20 06:32: Sodium 134 L, Potassium 4.1, Chloride 110 H, Carbon Dioxide 19.0 L, Anion Gap 5, BUN 21 H, Creatinine 0.74, Estim Creat Clear Calc 122.12, Est GFR (MDRD) Af Amer 138, Est GFR (MDRD) Non-Af 114, BUN/Creatinine Ratio 28.5 H, Glucose 115 H, Calcium 8.2 L, Total Bilirubin 0.30, AST 48 H, ALT 55, Alkaline Phosphatase 73, Total Protein 7.1, Albumin 2.5 L, Globulin 4.6 H, Albumin/Globulin Ratio 0.5 L Current Medications Acetaminophen (Acetaminophen 325 Mg Tablet) 650 mg PO Q6H PRN PRN PRN Reason: Pain Score 1-10/Temp > 100.7 F Al Hydroxide/Mg Hydroxide (Mag Hydrox/Al Hydrox/Simeth 30 Ml Udc) 30 ml PO Q6H PRN PRN PRN Reason: Gastric Burning Albuterol Sulfate (Albuterol 2.5 Mg/3 Ml Vial.Neb.) 2.5 mg INHALATION Q2H PRN PRN PRN Reason: Shortness of Breath/Wheezing Apixaban (Apixaban 5 Mg Tablet) 10 mg PO BID [facility] Last Admin: 06/02/20 09:00 Dose: 10 mg Documented by: Dexamethasone (Dexamethasone 4 Mg Tablet) 6 mg PO DAILY [facility] Stop: 06/09/20 10:01 Last Admin: 06/02/20 09:00 Dose: 6 mg Documented by: Remdesivir 100 mg/ Sodium (Chloride) 250 mls @ 125 mls/hr IV DAILY [facility] Stop: 06/04/20 11:59 Last Admin: 06/02/20 10:50 Dose: 125 mls/hr Documented by: Sodium Chloride () 250 mls @ 15 mls/hr IV .[id number] PRN PRN Reason: Saline Flush Last Infusion: 06/02/20 10:51 Dose: 0 mls/hr Documented by: Sodium Chloride () 250 mls @ 15 mls/hr IV .[id number] PRN PRN Reason: Additional IVPB Infusion Nitroglycerin (Nitroglycerin (Inpatient Use) 0.4 Mg Tab.Subl) 0.4 mg SUBLINGUAL Q5M PRN PRN Reason: CARDIAC/CHEST PAIN Ondansetron HCl (Ondansetron 4 Mg/2 Ml Vial) 4 mg IV Q8H PRN PRN PRN Reason: NAUSEA/VOMITING Sodium Chloride (0.9% Saline Lock 10 Ml Syringe) 10 - 40 ml IV UD PRN PRN Reason: SALINE FLUSH Last Admin: 06/02/20 10:51 Dose: 10 ml Documented by: Discharge Diet: No Restrictions Discharge Activity: Return to Normal Activity Call your doctor if you observe: Fever of 101 or Higher, Shortness of breath Home Medications: Medications to take at Discharge Acetaminophen [Tylenol Extra Strength] 1,000 mg PO DAILY PRN PRN 05/31/20 Ascorbic Acid 500 mg PO DAILY 05/31/20 Ascorbic Acid/Elderberry Fruit [Elderberry-Vit C 50-100 mg Chw] 1 ea PO DAILY 05/31/20 Cholecalciferol (Vitamin D3) [Vitamin D3] 5,000 unit PO DAILY 05/31/20 Apixaban [Eliquis] 5 mg PO BID #60 tab 06/02/20 Dexamethasone [Decadron] 6 mg PO DAILY #7 tab 06/02/20 Following Prescriptions Were Given to Patient: Dexamethasone [Decadron] 6 mg PO DAILY #7 tab Transmission Status: Pending to [facility]/pharmacy #[id number] Apixaban [Eliquis] 5 mg PO BID #60 tab Transmission Status: Pending to [facility]/pharmacy #[id number] Primary Care Physician: Neetu Pham MD [Primary Care Provider] - Within 2 Weeks Disposition: Home Minutes spent on discharge:: 32 Patient Condition:: Fair Medical Necessity - Tobacco Use Smoking Status: Never smoker Tobacco Use: Non-smoker Meaningful Use Info Meaningful Use Diagnoses (Choose all that apply): None applicable Inpatient E&M: [id number] [facility]
--- NOTE | 2020-06-02 13:09 | CASEMGMT ---
SAROJ CM Note: 30 day savings card for Eliquis called to patient's pharmacy. Heriberto CULP RN ACM
--- NOTE | 2020-06-02 15:47 | CHAPLAIN ---
Type of Pastoral Visit ___ Initial Visit ___ Follow-up Visit ___ On-call Visit ___ General Patient Visit ___ Spiritual Assessment ___ Family Conference ___ Bereavement ___ Rapid Response ___ Code Blue _x__ Other (describe below) Pastoral Care Referral From ___ Patient ___ Family ___ Nurse ___ Physician ___ Metal Reed Tuner ___ Second Class Welder _x__ Other (describe below) Sacrament/Intervention _x__ Active listening ___ Anointing ___ Sabianism ___ Bereavement ___ Communion ___ Rajni exploration ___ ___ Life review ___ Prayer ___ Reconciliation ___ Sacrament of Sick ___ Supportive presence ___ Wedding ___ Other (describe below) Pastoral Comments phone call into this isolation room; pt answers phone and states that he is being discharged this afternoon and is doing well; pt grateful for the support and indicates no other needs at this time
--- NOTE | 2020-06-03 15:00 | CASEMGMT ---
SAROJ [place] DC PHONE CALL DC DATE: 06/02/2020 DC DISPOSITION: Home with Home oxygen DC DIAGNOSIS: SARS COVID 2 Intro role of CM to patient via phone. The patient states he is doing great. His oxygen is staying over 95% on 4L and he asked re: weaning down to 3or 2. SAROJ [place] let him know this would be fine as long as his pulse ox at rest and with activity is staying above 92%. Recommended he does not go below 2L NC without physician supervision. Pt will be contacting PCP for f/u and does not have questions re: his medications. Heriberto ONEILN RN ACM
== END 2020-06-02 16:15 | disposition home or self-care (01) | DRG 177 ==
LOC: ED 12:26 → MS2 15:21
PROVIDERS: Internal Medicine Infectious Disease; Admitting Provider Internal Medicine; Emergency Provider Emergency Medicine; PCP Family Medicine
DX: U07.1 COVID-19 (principal); I26.09 Other pulmonary embolism with acute cor pulmonale; J12.89 Other viral pneumonia; J96.01 Acute respiratory failure with hypoxia; E87.2 Acidosis; Z82.49 Family history of ischemic heart disease and other diseases of the circulatory system
CPT/HCPCS: 36415; 71045; 71275; 80048; 80053; 80076; 83605; 84484; 85025; 85027; 85379; 87040; 87635; 93005; 99285; J7030; J7050; Q9967; A4216; U0002